=== PATIENT | female | born 1955 | race Caucasian/White ===

== ENCOUNTER 2021-11-08 08:38 | Emergency (ER) | payer OTHER, SELFPAY ==
[2021-11-08 08:44] VITALS: BP 135/80; PULSE 68; RESP 16; TEMP 36.9; O2SAT 99
--- NOTE | 2021-11-08 08:55 | ED.EPISTAXIS ---
HPI - Epistaxis General Chief complaint: Upper Respiratory Infection Stated complaint: Nose bleeds Time Seen by Provider: 11/08/21 09:00 Source: patient Mode of arrival: ambulatory Limitations: no limitations History of Present Illness HPI Narrative: 66-year-old female presents concern for nosebleed in the left nare. She reports history of frequent nosebleeds recently, she has told this to her primary care doctor. She denies any new intervention for nosebleeds. She reports history of sinus problems. She reports having dry air in her home and at work. She reports her left nostril bled for approximately 10 minutes this morning. Reports is currently not bleeding. She denies any pain, headache. MD complaint: epistaxis Related Data Home Medications Medication Instructions Recorded Confirmed atorvastatin 10 mg PO DAILY 11/08/21 11/08/21 hydrochlorothiazide 25 mg PO DAILY 11/08/21 11/08/21 levothyroxine [Euthyrox] 100 mcg PO DAILY 11/08/21 11/08/21 lisinopril 20 mg PO DAILY 11/08/21 11/08/21 nabumetone 750 mg PO DAILY 11/08/21 11/08/21 Allergies Allergy/AdvReac Type Severity Reaction Status Date / Time latex Allergy Unknown Verified 05/03/16 10:27 Review of Systems Review of Systems: CONSTITUTIONAL: Denies malaise, chills, sweats, or fever. EYES: Denies visual changes, redness, or discharge. ENT: Reports recent left nare epistaxis CARDIOVASCULAR: Denies chest pain, palpitations, or edema. RESPIRATORY: Denies cough or dyspnea. SKIN: Denies rash or itching. NEUROLOGIC: Denies numbness, weakness, or headache. All systems reviewed & are unremarkable except as noted in HPI and below PMFSH Comments At time of signature, agree with nursing past medical, surgical, social and family history. There is no relevant family history pertinent to the presenting complaint Exam Narrative: GENERAL: Well-appearing, well-nourished, and in no acute distress. HEAD: Normocephalic, atraumatic. EYES: PERRLA, sclera clear ENT: Right nares clear, turbinates pink, no rhinorrhea or epistaxis; left nare with small amount of blood clots, no septal hematoma noted, no active bleeding. Mucous membranes moist. TM pearly shay with sharp light reflex bilaterally; no tragal tenderness. Oropharynx without erythema or lesions. Tonsils not enlarged and without exudate. NECK: Supple. No lymphadenopathy. CHEST: No respiratory distress. Speaks in full sentences. HEART: Regular rate and rhythm. SKIN: Warm, dry, no visible rash. NEURO: Alert and oriented x3. PSYCH: Normal mood and affect Course Course Emergency Course: Patient given nasal clamp to take home, anticipatory guidance given of how to handle future bleeds. Patient is aware of diagnosis, understands and agrees to treatment plan. Anticipatory guidance given. Patient agrees to follow-up as directed and is aware of reasons to seek care at the emergency department. Portions of this record may have been created with voice recognition software Level of Care: Express Care Visit Vital Signs Vital signs: Vital Signs Temperature 98.4 F 11/08/21 08:44 Pulse Rate 68 11/08/21 08:44 Respiratory Rate 16 11/08/21 08:44 Blood Pressure 135/80 11/08/21 08:44 Pulse Oximetry 99 11/08/21 08:44 Temperature 98.4 F 11/08/21 08:44 Pulse Rate 68 11/08/21 08:44 Respiratory Rate 16 11/08/21 08:44 Blood Pressure 135/80 11/08/21 08:44 Pulse Oximetry 99 11/08/21 08:44 Reviewed. MDM - Epistaxis MDM Narrative Medical decision making narrative: Exam findings show no acute concerns or changes; patient is non-toxic appearing and is in no distress. Patient is appropriate for outpatient treatment and follow-up. Critical Care Time Critical Care Time Critical Care Time: No Discharge Plan Discharge Clinical Impression: Epistaxis Patient Disposition: Home, Self-Care Condition: Stable Instructions: Nosebleed (ED) Additional Instructions: Avoid blowing your nose. Use salin
== END 2021-11-08 09:15 | disposition home or self-care (01) ==
PROVIDERS: Emergency Provider Nurse Practitioner; PCP Internal Medicine
DX: R04.0 Epistaxis (principal); E03.9 Hypothyroidism, unspecified; M19.90 Unspecified osteoarthritis, unspecified site; I10 Essential (primary) hypertension; E78.00 Pure hypercholesterolemia, unspecified; I20.9 Angina pectoris, unspecified
CPT/HCPCS: 99203; G0463